=== PATIENT | female | born 1975 | race African-American/Black ===

== ENCOUNTER 2018-05-25 11:09 | Emergency (ER) | payer MEDICAID ==
[~2018-05-25] VITALS: Ht 162.6 cm; Wt 78.5 kg
[2018-05-25 11:42] VITALS: BP 121/74
[2018-05-25] MEDS ORDERED: KETOROLAC TROMETH 60MG/2ML VIAL IM ONE (12:30)
== END 2018-05-25 12:43 | disposition home or self-care (01) ==
LOC: ER 11:09
DX: S29.012A Strain of muscle and tendon of back wall of thorax, initial encounter (principal); X50.0XXA Overexertion from strenuous movement or load, initial encounter; Y93.89 Activity, other specified; Y99.8 Other external cause status; Y92.89 Other specified places as the place of occurrence of the external cause
CPT/HCPCS: 96372; 99283; J1885

== ENCOUNTER 2018-06-14 10:58 | Emergency (ER) | payer MEDICAID ==
[~2018-06-14] VITALS: Ht 162.6 cm; Wt 79.8 kg
[2018-06-14 13:25] VITALS: BP 110/74
== END 2018-06-14 14:18 | disposition home or self-care (01) ==
LOC: ER 10:58
DX: J03.90 Acute tonsillitis, unspecified (principal); J04.0 Acute laryngitis

== ENCOUNTER 2022-02-14 08:29 | Emergency (ER) | payer SELFPAY ==
[~2022-02-14] VITALS: Ht 165.1 cm; Wt 80.1 kg
[2022-02-14] MEDS ORDERED: KETOROLAC TROMETH 60MG/2ML VIAL IM ONE (09:15)
[2022-02-14 09:16] VITALS: BP 133/82
[2022-02-14] MEDS ORDERED: IBUP600T27 PO (09:48)
== END 2022-02-14 09:54 | disposition home or self-care (01) ==
LOC: ER 08:29
DX: S80.02XA Contusion of left knee, initial encounter (principal); S80.01XA Contusion of right knee, initial encounter; S50.02XA Contusion of left elbow, initial encounter; M25.511 Pain in right shoulder; W19.XXXA Unspecified fall, initial encounter; Y93.89 Activity, other specified; Y92.89 Other specified places as the place of occurrence of the external cause; Y99.8 Other external cause status
CPT/HCPCS: 96372; 99283; J1885

== ENCOUNTER 2023-10-23 18:45 | Emergency (ER) | payer MEDICAID, OTHER ==
[~2023-10-23] VITALS: Ht 165.1 cm; Wt 77.2 kg
[~2023-10-23 18:45] MED LIST: IBUP-1454 PO
[2023-10-23 21:03] VITALS: BP 112/69; PULSE 84; RESP 18; TEMP 100; O2SAT 98
[2023-10-23] MEDS: ACETAMINOPHEN 325 MG TAB PO ONE (21:17)
[2023-10-23 21:27] LABS: COVID19 ANTIGEN SOFIA FIA NEGATIVE (NEGATIVE)
[2023-10-23 21:31] LABS: Rapid Influenza A Positive (Negative)
[2023-10-23 21:32] LABS: Rapid Influenza B Negative (Negative)
[2023-10-23] MEDS ORDERED: OSEL75CA5 PO (21:35)
== END 2023-10-23 21:50 | disposition home or self-care (01) ==
LOC: ER 18:45
DX: J10.1 Influenza due to other identified influenza virus with other respiratory manifestations (principal); Z20.822 Contact with and (suspected) exposure to COVID-19; Z79.899 Other long term (current) drug therapy
CPT/HCPCS: 36415; 87426; 87804